=== PATIENT | female | born 1975 | race Caucasian/White ===

== ENCOUNTER 2017-03-07 11:11 | Emergency (ER) | payer BC ==
[2017-03-07] MEDS ORDERED: KETOROLAC TROMETHAMINE 60 MG/2 ML VIAL IM ONE ×2 (11:34→11:37)
--- NOTE | 2017-03-07 11:34 | ERNOTE ---
Headache ER HPI - General Presenting Symptoms: headache Time Seen by Provider: 03/07/17 11:29 Source: patient Exam Limitations: no limitations - Immun/Allergies/Home Medications Immunizations: IMMUNIZATION HX Immunizations Up to Date Yes History of Influenza Vaccine No Hx Pneumococcal Vaccination Yes Allergies/Adverse Reactions: Allergies levothyroxine sodium Allergy (Verified 03/07/17 11:31) Other albuterol Adverse Reaction (Verified 03/07/17 11:31) Home Medications: HOME MEDICATIONS Acetaminophen [Tylenol] 1,000 mg PO PRN PRN 08/14/15 [Last Taken 08/14/15] Cetirizine HCl [Zyrtec] 20 mg PO DAILY 08/14/15 [Last Taken Unknown] Torsemide 08/30/15 [Last Taken Unknown] - History of Present Illness Narrative: Patient comes into the emergency room for a left-sided migraine headache that has been going on for 3 days. Patient complains of slight photophobia but no nausea or vomiting she denies any fevers or chills headache was not thunderclap but it was gradual. Review of Systems - Review of Systems Constitutional: Present: no symptoms reported EYE: Present: see HPI ENT: Present: no symptoms reported Respiratory: Present: no symptoms reported Cardiology: Present: no symptoms reported Gastrointestinal/Abdominal: Present: no symptoms reported Genitourinary: Present: no symptoms reported Musculoskeletal: Present: no symptoms reported Skin: Present: no symptoms reported Neurological: Present: See HPI, headache - Patient's Past Medical History Patient History - Medical: No pertinent hx Patient History - Cancer: No Hx of Cancer Patient History - Surgical Procedures: LMP (females 10-50): now - Social History Living Situations: home Abuse History: No History of abuse Psych History: No pertinent hx Alcohol Use: rarely Drug Use: none - Immunizations Immunizations Up to Date: Yes Hx Pneumococcal Vaccination: Yes History of Influenza Vaccine: No Physical Exam - Physical Exam General Appearance: Present: wd/wn, alert, no apparent distress - patient does appear uncomfortable due to pain she has her eye closed because she slightly photophobic out of both eyes. Head Exam: Present: normal inspection, no evidence of injury Eye Exam: Normal inspection: bilateral, PERRL: bilateral, EOMI: bilateral Ears, Nose, Throat: Present: normal ENT inspection Neck: Present: normal inspection, nontender Respiratory: Present: no respiratory distress, normal breath sounds, chest nontender, lungs clear Cardiovascular/Chest: Present: regular rate, rhythm, no murmur, normal peripheral pulses Back Exam: Present: normal inspection Extremity Exam: Present: normal inspection, normal range of motion Neurological Exam: Present: alert, oriented, normal mood/affect, no motor/ sensory deficits ED Progress - Vital Signs Patient's Vital Signs:: I have reviewed the patient's vital signs. Vital Signs: Vital Signs 03/07/17 11:27 Temperature 36.9 C Pulse Rate 87 Respiratory 16 Rate Blood Pressure 135/90 O2 Sat by Pulse 99 Oximetry - Progress/Reassessment Chief Complaint: Headache Plan - Plan Plan: Patient has a severe migraine on the left side which has been there for 3 days with Toradol 60 mg IM patient's pain went from a 10 to a 2 out of 10 she is stable and appropriate for discharge Departure Clinical Impression: Migraine Qualifiers: Migraine type: unspecified Status migrainosus presence: without status migrainosus Intractability: not intractable Qualified Code(s): G43.909 - Migraine, unspecified, not intractable, without status migrainosus - Departure Disposition: Home self-care Condition: Good Instructions: Migraine Headache, [id number]
[2017-03-07] MEDS ORDERED: MORPHINE SULFATE 2 MG/ML DISP.SYRIN IV ONE (11:41)
[2017-03-07] MEDS ORDERED: NITROGLYCERIN 0.4 MG/TAB BTL SL ONE (11:41)
[2017-03-07 15:21] VITALS: BP 124/84
== END 2017-03-07 12:25 | disposition home or self-care (01) ==
LOC: ER 11:11
DX: G43.909 Migraine, unspecified, not intractable, without status migrainosus (principal)